=== PATIENT | male | born 1985 | race Caucasian/White ===

== ENCOUNTER 2018-06-18 15:53 | Observation (INO) | payer OTHER ==
[2018-06-18] MEDS ORDERED: fentaNYL 100 MCG/2 ML INJ ONE ×2 (15:58→16:59)
[2018-06-18] MEDS ORDERED: fentaNYL 100 MCG/2 ML INJ IVP ONE (16:00)
[2018-06-18] MEDS ORDERED: NS 1,000 ML IV ONE (16:00)
--- NOTE | 2018-06-18 16:00 | EDPHY ---
H & P Time Seen by Provider: 06/18/18 15:58 HPI/ROS: Chief complaint. Wrist laceration HPI. Patient is 32 male here by EMS after sustaining wrist laceration. Apparently he was working with glass [employer] 1 of which fell and struck him on the wrist causing laceration. Apparently blood was spurting and pulses from the wrist. EMS notes about 500 cc of blood on the floor. A tourniquet was applied at 1544 hr. Bleeding was controlled with this. Patient has no other injuries. With the tourniquet he complains that his entire hand is numb. Patient is right handed ROS Constitutional. no fever/chills, no weakness Eyes. no problems with vision ENT. no sore throat, no nasal drainage Cardiovascular. no chest pain Respiratory. no shortness of breath, no cough Abdominal. no abdominal pain, no nausea/vomiting, no diarrhea . no problems urinating MS. no calf pain/swelling, no neck/back pain, no joint pain Skin. Left wrist laceration Lymph. no swollen glands Neuro. no headache, no dizziness, no difficulty walking or with speech Past Medical/Surgical History: Factor 5 Leiden deficiency on Xarelto Social History: , nonsmoker, no alcohol Physical Exam: General Appearance: Alert well-developed male moderate distress vital signs are stable Eyes: Pupils equal and round no pallor or injection. ENT, Mouth: Mucous membranes are moist. Respiratory: There are no retractions, lungs are clear to auscultation. Cardiovascular: Regular rate and rhythm. Gastrointestinal: Abdomen is soft and nontender, no masses, bowel sounds normal. Neurological: Decreased sensation to all fingers secondary to the tourniquet. However he has good range of motion. As far as I can tell radius ulnar and median nerve are intact. Does appear that he has abnormal flexion at the PIP joints left wrist Skin: 4 cm irregular laceration just proximal to the wrist on the flexor side Musculoskeletal: Neck is supple nontender. Extremities symmetrical, full range of motion. Psychiatric: Patient is oriented X 3, there is no agitation. Constitutional: Initial Vital Signs Temperature (C) 36.6 C 06/18/18 15:53 Heart Rate 103 H 06/18/18 15:53 Respiratory Rate 18 06/18/18 15:53 Blood Pressure 153/97 H 06/18/18 15:53 O2 Sat (%) 100 06/18/18 15:53 O2 Delivery Mode Nasal Cannula O2 (L/minute) 2 Allergies/Adverse Reactions: bacitracin [From Neosporin ([id number])] Allergy (Unknown, Verified 06/18/18 20:19) Rash neomycin [From Neosporin ([id number])] Allergy (Unknown, Verified 06/18/18 20 :19) Rash polymyxin B [From Neosporin ([id number])] Allergy (Unknown, Verified 20:19) Rash Home Medications: Medication Instructions Recorded Ibuprofen [Advil] 200 - 400 mg PO BID PRN 06/18/18 Rivaroxaban [Xarelto] 20 mg PO DAILY 06/18/18 Medical Decision Making - Diagnostics Imaging Results: Imaging Impressions Wrist X-Ray 06/18/18 16:01 Impression: No acute osseous findings. X-ray left wrist reviewed by me shows no evidence for foreign body Procedures: IV normal saline. Fentanyl and then Dilaudid for pain. IV Ancef ED Course/Re-evaluation: The tourniquet is removed and patient immediately has blood welling up from the wound. Direct pressure is placed. I consulted discussed case with Dr. Shah on-call for surgery who will see the patient in the emergency department. I also consulted and discussed case with Dr. Abbasi on-call for hand surgery. He will be available to the OR for tendon involvement. I discussed the treatment plan with the patient including recommendation for surgical exploration. He expresses understanding and agreement Differential Diagnosis: I believe the patient has an ulnar artery laceration. I considered foreign body. I believe the patient likely also has tendon lacerations. - Data Points Laboratory Results: Laboratory Results 06/18/18 16:08 06/18/18 16:08 06/18/18 06/18/18 06/18/18 16:08 16:08 16:08 WBC 8.81 10^3/uL 10^3/uL (3.80-9.50) RBC 4.98 10^6/uL 10^6/uL (4.40-6.38) Hgb 14.9 g/dL g/dL (13.7-17.5) POC Hgb Hct 42.8 % % (40.0-51.0) POC Hct MCV 85.9 fL fL (81.5-99.8) MCH 29.9 pg pg (27.9-34.1) MCHC 34.8 g/dL g/dL (32.4-36.7) RDW 13.0 % % (11.5-15.2) Plt Count 223 10^3/uL 10^3/uL (150-400) MPV 10.8 fL fL (8.7-11.7) Neut % (Auto) 47.3 % % (39.3-74.2) Lymph % (Auto) 41.8 % % (15.0-45.0) Warren % (Auto) 9.2 % % (4.5-13.0) Eos % (Auto) 0.9 % % (0.6-7.6) Baso % (Auto) 0.6 % % (0.3-1.7) Nucleat RBC Rel Count 0.0 % % (0.0-0.2) Absolute Neuts (auto) 4.17 10^3/uL 10^3/uL (1.70-6.50) Absolute Lymphs (auto) 3.68 10^3/uL H 10^3/uL (1.00-3.00) Absolute Monos (auto) 0.81 10^3/uL H 10^3/uL (0.30-0.80) Absolute Eos (auto) 0.08 10^3/uL 10^3/uL (0.03-0.40) Absolute Basos (auto) 0.05 10^3/uL 10^3/uL (0.02-0.10) Absolute Nucleated RBC 0.00 10^3/uL 10^3/uL (0-0.01) Immature Gran % 0.2 % % (0.0-1.1) Immature Gran # 0.02 10^3/uL 10^3/uL (0.00-0.10) PT 16.3 SEC H SEC (12.0-15.0) INR 1.29 H (0.83-1.16) APTT 29.9 SEC SEC (23.0-38.0) POC Sodium Sodium 139 mEq/L mEq/L (135-145) POC Potassium Potassium 3.6 mEq/L mEq/L (3.3-5.0) POC Chloride Chloride 105 mEq/L mEq/L (97-110) Carbon Dioxide 20 mEq/l L mEq/l (22-31) Anion Gap 14 mEq/L mEq/L (8-16) POC BUN BUN 21 mg/dL mg/dL (7-23) Creatinine 1.0 mg/dL mg/dL (0.7-1.3) POC Creatinine Estimated GFR > 60 Glucose 99 mg/dL mg/dL (70-100) POC Glucose Calcium 10.0 mg/dL mg/dL (8.5-10.4) Patient ABO/Rh Antibody Screen 06/18/18 06/18/18 16:00 13:55 WBC RBC Hgb POC Hgb 15.3 gm/dL gm/dL (13.7-17.5) Hct POC Hct 45 % % (40-51) MCV MCH MCHC RDW Plt Count MPV Neut % (Auto) Lymph % (Auto) Warren % (Auto) Eos % (Auto) Baso % (Auto) Nucleat RBC Rel Count Absolute Neuts (auto) Absolute Lymphs (auto) Absolute Monos (auto) Absolute Eos (auto) Absolute Basos (auto) Absolute Nucleated RBC Immature Gran % Immature Gran # PT INR APTT POC Sodium 143 mEq/L mEq/L (135-145) Sodium POC Potassium 3.2 mEq/L L mEq/L (3.3-5.0) Potassium POC Chloride 102 mEq/L mEq/L (97-110) Chloride Carbon Dioxide Anion Gap POC BUN 22 mg/dL mg/dL (7-23) BUN Creatinine POC Creatinine 1.0 mg/dL mg/dL (0.7-1.3) Estimated GFR Glucose POC Glucose 101 mg/dL H mg/dL (70-100) Calcium Patient ABO/Rh B NEGATIVE Antibody Screen NEGATIVE Medications Given: Discontinued Medications Bupivacaine HCl (Sensorcaine 0.5% Vial) Confirm Administered Dose 30 ml .ROUTE .STK-MED ONE Stop: 06/18/18 17:53 Last Admin: 06/18/18 17:53 Dose: 6 ml Cefazolin Sodium (Ancef) Confirm Administered Dose 1 gm .ROUTE .STK-MED ONE Stop: 06/18/18 17:16 Last Admin: 06/18/18 17:17 Dose: 1 gm Cefazolin Sodium (Ancef) Confirm Administered Dose 1 gm .ROUTE .STK-MED ONE Stop: 06/18/18 17:28 Last Admin: 06/18/18 17:17 Dose: 1 gm Fentanyl (Sublimaze) 100 mcg IVP EDNOW ONE Stop: 06/18/18 16:01 Last Admin: 06/18/18 16:13 Dose: 100 mcg Heparin Sodium (Porcine) (Heparin Flush 2,000 Unit/Ns 1,000 Ml) Confirm Administered Dose 2,000 unit .ROUTE .STK-MED ONE Stop: 06/18/18 17:34 Last Admin: 06/18/18 17:40 Dose: 2,000 unit Hydromorphone HCl (Dilaudid) 1 mg IVP EDNOW ONE Stop: 06/18/18 16:21 Last Admin: 06/18/18 16:22 Dose: 1 mg Sodium Chloride (Ns) 1,000 mls @ 0 mls/hr IV ONCE ONE; Wide Open PRN Reason: Protocol Stop: 06/18/18 16:01 Last Admin: 06/18/18 16:14 Dose: 1,000 mls Cefazolin Sodium/Dextrose (Ancef 1 Gm (Premix)) 50 mls @ 200 mls/hr IV EDNOW ONE PRN Reason: Protocol Stop: 06/18/18 16:20 Last Admin: 06/18/18 16:13 Dose: 50 mls Cefazolin Sodium/Dextrose (Ancef 1 Gm (Premix)) 50 mls @ 200 mls/hr IV Q8 COLEEN PRN Reason: Protocol Stop: 06/19/18 14:14 Last Admin: 06/18/18 21:58 Dose: 50 mls Ondansetron HCl (Zofran Odt) 4 mg PO Q4 PRN PRN Reason: Nausea/Vomiting, Use 1st Stop: 12/15/18 18:24 Last Admin: 06/18/18 20:49 Dose: 4 mg Oxycodone/Acetaminophen (Percocet 5/325) 1 - 2 tab PO Q4 PRN PRN Reason: Pain, Severe Able to Take PO Stop: 06/28/18 18:24 Last Admin: 06/18/18 20:49 Dose: 2 tab Thrombin (Thrombin-Jmi) Confirm Administered Dose 5,000 unit TP .STK-MED ONE Stop: 06/18/18 17:51 Last Admin: 06/18/18 17:52 Dose: 5,000 unit Point of Care Test Results: Chemistry 06/18/18 16:00 POC Sodium 143 mEq/L mEq/L (135-145) POC Potassium 3.2 mEq/L L mEq/L (3.3-5.0) POC Chloride 102 mEq/L mEq/L (97-110) POC BUN 22 mg/dL mg/dL (7-23) POC Creatinine 1.0 mg/dL mg/dL (0.7-1.3) POC Glucose 101 mg/dL H mg/dL (70-100) ISTAT H&H 06/18/18 16:00 POC Hgb 15.3 gm/dL gm/dL (13.7-17.5) POC Hct 45 % % (40-51) Departure - Departure Disposition: [facility] Inpatient Acute Clinical Impression: Ulnar blood vessel injury Qualifiers: Encounter type: initial encounter Laterality: left Qualified Code(s): S55.802A - Unspecified injury of other blood vessels at forearm level, left arm, initial encounter Condition: Fair
[2018-06-18 16:13] LABS: PLATELET COUNT 223 10^3/uL (150-400)
[2018-06-18] MEDS ORDERED: HYDROmorphONE/DILAUDID 1 MG/ML INJ ONE (16:17)
[2018-06-18] MEDS ORDERED: HYDROmorphONE/DILAUDID 1 MG/ML INJ IVP ONE (16:20)
[2018-06-18 16:24] LABS: INR 1.29 (0.83-1.16); PROTIME(PATIENT) 16.3 SEC (12.0-15.0)
[2018-06-18] MEDS ORDERED: PROPOFOL 200 MG/20 ML VIAL ONE (16:59)
[2018-06-18] MEDS ORDERED: ceFAZolin 1 GM VIAL ONE ×2 (17:15→17:27)
[2018-06-18] MEDS ORDERED: DEXAMETHASONE 4 MG/ML VIAL ONE (17:26)
[2018-06-18] MEDS ORDERED: ROCURONIUM 50 MG/5 ML VIAL ONE (17:27)
[2018-06-18] MEDS ORDERED: PROMETHAZINE HCL 25 MG/ML INJ IVP PRN (17:32)
[2018-06-18] MEDS ORDERED: NALOXONE HCL 0.4 MG/ML INJ IVP PRN (17:32)
[2018-06-18] MEDS ORDERED: ONDANSETRON 4 MG/2 ML VIAL IVP PRN (17:32)
[2018-06-18] MEDS ORDERED: HYDROmorphONE/DILAUDID 1 MG/ML INJ IVP PRN (17:32)
--- NOTE | 2018-06-18 17:42 | PDANEPAE ---
ANE History of Present Illness Ulnar artery laceration with about 750 ml EBL ANE Past Medical History - Pulmonary History Hx Sleep Apnea: No ANE Review of Systems Review of Systems: - Systems Hematologic/Lymphatic: Reports: other (Factor V Liden with hx blood clots) ANE Patient History - Allergies Allergies/Adverse Reactions: No Known Allergies Allergy (Unverified 06/18/18 16:03) - Home Medications Home medications: home medication list seen and reviewed Home Medications: Xarelto 06/18/18 [Last Taken Unknown] - NPO status NPO Since - Liquids (Date): 06/18/18 NPO Since - Liquids (Time): 12:45 NPO Since - Solids (Date): 06/18/18 NPO Since - Solids (Time): 12:45 - Anes Hx Anes Hx: no prior problems ANE Labs/Vital Signs - Labs Result Diagrams: 06/18/18 16:08 06/18/18 16:08 - Vital Signs Blood Pressure: 137/82 Heart Rate: 59 Respiratory Rate: 16 O2 Sat (%): 99 Height: 195.58 cm Weight: 102.965 kg ANE Physical Exam - Airway Neck exam: FROM Mallampati Score: Class 1 Mouth exam: normal dental/mouth exam - Pulmonary Pulmonary: no respiratory distress - Cardiovascular Cardiovascular: regular rate and rhythym - ASA Status ASA Status: II, E ANE Anesthesia Plan Anesthesia Plan: general endotracheal anesthesia (RSI)
[2018-06-18] MEDS ORDERED: ONDANSETRON 4 MG/2 ML VIAL ONE (17:49)
[2018-06-18] MEDS ORDERED: THROMBIN (BOVINE) 5,000 UNIT VIAL TP ONE (17:50)
[2018-06-18] MEDS ORDERED: BUPIVACAINE 0.5% 30 ML SDV ONE (17:52)
[2018-06-18] MEDS ORDERED: SUGAMMADEX SODIUM 200 MG/2 ML VIAL IVP ONE (18:03)
--- NOTE | 2018-06-18 18:13 | PDGENHP ---
History & Physical Chief Complaint: 32 male with left hand lac at work 2/2 glass sheet History of Present Illness: has 3cm lac on volar ulnar side of left wrist, bleeding profusely requiring tourniquet for control. admit for emergency repair. risks and options fully discussed. tendon and nerve function appear to be intact. pt ate at 12:30. HAS NOT TAKEN XARELTO TODAY. WRIST XRAY NEG FOR FB Pertinent Past, Social, Family History: PMH FACTOR 5 LEIDEN DEFICIENCY. FAM HX NONCONTRIBUTORY. ROS - 1O PT REVIEW. NKA. MEDS XARELTO. SOC: NO TOB OR ETOH Relevant Physical Exam: HEALTHY 32 MALE WITH MAJOR HEMORHAGE FROM LEFT WRIST. HEENT NONICTERIC, PERRLA. CHEST CLEAR. COR RR. ABD SOFT. GEN OK. EXTREM FULL ROM, FULL PULSES/ LEFT WRIST WITH 3CM LONGITUDINAL LAC, PROFUSE ARTERIAL BLEEDING WHEN TOURNIQUET DOWN. TENDON FUNCTION INTACT. MEDIAN AND ULNAR NERVE INTACT MOTOR FUNCTION. HARD TO ASSESS SENSORY FUNCTION WITH TOURNIQUET UP. NEURO INTACT. PSYCH ALERT, ORIENTED, COOPERATIVE Cardiorespiratory Assessment: ULNAR ARTERY LAC LEFT WRIST. PLAN EXPLORE AND REPAIR OR LIGATE. RISKS AND OPTIONS FULLY DISCUSSED
--- NOTE | 2018-06-18 18:19 | POSTANESTH ---
Post Anesthetic Evaluation Cardiovascular Status: Similar to Pre-Op Cond Respiratory Status: Similar to Pre-op Cond. Level of Consciousness/Mental Status: Can Participate in Eval Pain Control: Adequate, Prn Tx Ordered Nausea/Vomiting Control: Adequate, Prn Tx Ordered Complications Possibly Related to Anesthesia: None Noted
[2018-06-18] MEDS ORDERED: OXYCODONE/APAP 5/325 TAB PO PRN (18:25)
[2018-06-18] MEDS ORDERED: ONDANSETRON DISINTEGRATING 4 MG TAB PO PRN (18:25)
--- NOTE | 2018-06-18 18:36 | POSTOPPROG ---
Post Op Note Date of Operation: 06/18/18 Surgeon: Linden Shah Clinical Physician Assistant: SAIDA Anesthesiologist: NADREI Anesthesia: GET(General Endotracheal) Pre-op Diagnosis: LEFT ULNAR ARTERY LAC Post-op Diagnosis: SAME Indication: MAJOR HEMORHAGE Procedure: WOUND EXPLORATION AND ULNAR ARTERY REPAIR Findings: 95% LAC OF ULNAR ART, NERVE INTACT, TENDONS INTACT Inf/Abcess present in the surg proc area at time of surgery?: No Depth: Deep Incisional (Fascial) EBL: 50-100 Complications: 0 Specimen(s): 0
[2018-06-18 21:47] VITALS: BP 117/58
--- NOTE | 2018-06-18 21:52 | SOAPPROG ---
SOAP Progress Note Assessment/Plan: Assessment: POSTOP DOING WELL/CIRCULATION AND NEUROLOGIC FUNCTION THE LEFT HAND INTACT/FULL RANGE OF MOTION RESTART HIS XARELTO IN THE A.M. Plan: HOME TONIGHT/FOLLOW-UP KNEE OFFICE IN 48 HR/PRESCRIPTION FOR PERCOCET 06/18/18 21:50 Objective: Vital Signs Temp Pulse Resp BP Pulse Ox 36.4 C 61 16 117/58 L 93 06/18/18 21:30 06/18/18 21:30 06/18/18 21:30 06/18/18 21:30 06/18/18 21:30 06/17/18 06/18/18 06/19/18 05:59 05:59 05:59 Intake Total 1000 Output Total 5 Balance 995 PT 16.3 SEC (12.0-15.0) H 06/18/18 16:08 INR 1.29 (0.83-1.16) H 06/18/18 16:08 ICD10 Worksheet Patient Problems: Problems Problem Status Onset Ulnar blood vessel injury Acute - ICD10 Problem Qualifiers (1) Ulnar blood vessel injury
== END 2018-06-18 22:40 | disposition home or self-care (01) ==
LOC: F3EOP 17:38 → F3E 18:08
PROVIDERS: ADMIT Surgery; ATTEND Surgery
PROC: 03QA0ZZ Repair Left Ulnar Artery, Open Approach (ICD-10-PCS; principal; 2018-06-18 16:45)
DX: S65.012A Laceration of ulnar artery at wrist and hand level of left arm, initial encounter (principal); D68.2 Hereditary deficiency of other clotting factors; W25.XXXA Contact with sharp glass, initial encounter; Y99.0 Civilian activity done for income or pay; Y92.019 Unspecified place in single-family (private) house as the place of occurrence of the external cause; Z79.01 Long term (current) use of anticoagulants; Z86.718 Personal history of other venous thrombosis and embolism
CPT/HCPCS: 82435-PO; 82565-PO; 82947-PO; 84132-PO; 84295-PO; 84520-PO; 85014-PO; 96365; J0690; J1100; J1170; J1644; J2405; J2704; J3010